=== PATIENT | female | born 1990 ===

== ENCOUNTER 2018-06-20 15:45 | Emergency (ER) | payer OTHER ==
[2018-06-20] MEDS ORDERED: Sodium Chloride 0.9% 1,000 ML IV ONE (16:01)
[2018-06-20 16:32] LABS: BASO % 0.2 % (0.0-2.0); EOS # 0.1 K/uL (0.0-0.7); EOS % 1.2 % (0.0-4.0); HEMOGLOBIN 11.1 g/dL (11.0-16.0); LYMPH # 2.5 K/uL (1.0-4.3); LYMPH % 34.4 % (20.0-40.0); MEAN CELL VOLUME 79.2 fL (81.0-99.0); MEAN CORPUSCULAR HEMOGLOBIN 25.2 pg (27.0-31.0); MEAN CORPUSCULAR HGB CONC 31.9 g/dL (33.0-37.0); MEAN PLATELET VOLUME 9.9 fL (7.2-11.7); MONO # 0.4 K/uL (0.0-0.8); MONO % 5.5 % (0.0-10.0); NEUT # 4.3 K/uL (1.8-7.0); NEUT % 58.7 % (50.0-75.0); NRBC % 0.1 % (0.0-2.0); RBC 4.4 Mil/uL (3.80-5.20); RED CELL DISTRIBUTION WIDTH 15.4 % (11.5-14.5); WHITE BLOOD COUNT 7.3 K/uL (4.8-10.8)
[2018-06-20 16:37] LABS: HCG,QUALITATIVE URINE POSITIVE (NEGATIVE)
[2018-06-20 16:45] LABS: BLOOD UREA NITROGEN 5 mg/dL (7-17); CALCIUM 9.4 mg/dl (8.6-10.4); GFR NON-AFRICAN AMERICAN > 60
[2018-06-20 16:49] LABS: SQUAMOUS EPITHIAL 7 /hpf (0-5); URINE BACTERIA RARE (<OCC); URINE BILIRUBIN NEGATIVE (NEGATIVE); URINE BLOOD 3+ (NEGATIVE); URINE CLARITY Clear (Clear); URINE COLOR Straw (YELLOW); URINE GLUCOSE (UA) NORMAL (Normal); URINE LEUKOCYTE ESTERASE NEG Leu/uL (Negative); URINE PROTEIN NEGATIVE (NEGATIVE); URINE UROBILINOGEN NORMAL mg/dL (0.2-1.0)
--- NOTE | 2018-06-20 18:33 | C.PDOC ---
Time Seen by Provider: 06/20/18 16:01 Chief Complaint (Nursing): Female Genitourinary Past Medical History Vital Signs: Last Vital Signs Temp 98.5 F 06/20/18 15:50 Pulse 76 06/20/18 15:50 Resp 18 06/20/18 15:50 BP 119/76 06/20/18 15:50 Pulse Ox 100 06/20/18 15:50 - Social History Hx Alcohol Use: No Hx Substance Use: No - Immunization History Hx Tetanus Toxoid Vaccination: No Hx Influenza Vaccination: No Hx Pneumococcal Vaccination: No ED Course And Treatment - Laboratory Results Result Diagrams: 06/20/18 16:29 06/20/18 16:29 O2 Sat by Pulse Oximetry: 100 Disposition - Disposition Disposition: HOME/ ROUTINE Disposition Time: 18:31 Condition: GOOD Additional Instructions: Follow up with your [facility] [employer] [employer] or in the Emergency Department in 2 days for repeat blood work. Return to Emergency right away if heavy bleeding or significant pelvic pain. Instructions: Bleeding With (DC) Forms: [facility] (Swedish), General Discharge Instructions, Work Excuse - POA Present On Arrival: None - Clinical Impression Clinical Impression: Bleeding in early
[2018-06-20 18:35] VITALS: BP 108/66; PULSE 84; RESP 16; TEMP 98.8
[2018-06-20 18:36] VITALS: O2SAT 100
--- NOTE | 2018-06-20 18:36 | C.PDOC ---
History Of Present Illness 28 y/o female, 5 weeks , presents to ED for evaluation after she noticed some blood in her underwear today. She also reports some blood in her urine. Notes she had abdominal cramping at that time but does not have any pain at this time. Pt was seen at the clinic earlier today for her first visit. Otherwise, denies dysuria, frequency, fever, chills, or back pain. Time Seen by Provider: 06/20/18 16:01 Chief Complaint (Nursing): Female Genitourinary History Per: Patient History/Exam Limitations: no limitations Onset/Duration Of Symptoms: Hrs Current Symptoms Are (Timing): Still Present Quality Of Discomfort: Cramping Associated Symptoms: Urinary Symptoms. denies: Fever, Chills, Nausea, Vomiting, Diarrhea Alleviating Factors: None Recent travel outside of the [place]: No Additional History Per: Patient Abnormal Vaginal Bleeding: No Past Medical History Reviewed: Historical Data, Nursing Documentation, Vital Signs Vital Signs: Last Vital Signs Temp 98.5 F 06/20/18 15:50 Pulse 76 06/20/18 15:50 Resp 18 06/20/18 15:50 BP 119/76 06/20/18 15:50 Pulse Ox 100 06/20/18 18:33 Family History: States: Unknown Family Hx - Social History Hx Alcohol Use: No Hx Substance Use: No - Immunization History Hx Tetanus Toxoid Vaccination: No Hx Influenza Vaccination: No Hx Pneumococcal Vaccination: No Review Of Systems Review Of Systems: ROS cannot be obtained secondary to pt's inabilty to answer questions. Constitutional: Negative for: Fever, Chills Gastrointestinal: Negative for: Nausea, Vomiting, Abdominal Pain, Diarrhea Genitourinary: Positive for: Hematuria. Negative for: Dysuria, Frequency, Vaginal Discharge, Pelvic Pain Musculoskeletal: Negative for: Back Pain Physical Exam - Physical Exam Appears: Non-toxic, No Acute Distress Skin: Normal Color, Warm, Dry Head: Atraumatic, Normacephalic Eye(s): bilateral: Normal Inspection Oral Mucosa: Moist Neck: Normal ROM, Supple Chest: Symmetrical Cardiovascular: Rhythm Regular, No Murmur Respiratory: Normal Breath Sounds, No Rales, No Rhonchi, No Wheezing Gastrointestinal/Abdominal: Soft, No Tenderness, No Guarding, No Rebound Back: No CVA Tenderness Extremity: Normal ROM Neurological/Psych: Oriented x3, Normal Speech ED Course And Treatment - Laboratory Results Result Diagrams: 06/20/18 16:29 06/20/18 16:29 O2 Sat by Pulse Oximetry: 100 (RA) Pulse Ox Interpretation: Normal Medical Decision Making Medical Decision Making: Plan: Blood work Urinalysis IV fluids Disposition - Disposition Disposition: HOME/ ROUTINE Disposition Time: 18:31 Condition: GOOD Additional Instructions: Follow up with your REPORTING SPECIALIST or in the Emergency Department in 2 days for repeat blood work. Return to Emergency right away if heavy bleeding or significant pelvic pain. Instructions: Bleeding With (DC) Forms: General Discharge Instructions, [facility] (Belarusian), Work Excuse - Clinical Impression Clinical Impression: Bleeding in early - Scribe Statement The provider has reviewed the documentation as recorded by the Scribe KP All medical record entries made by the Scribe were at my direction and personally dictated by me. I have reviewed the chart and agree that the record accurately reflects my personal performance of the history, physical exam, medical decision making, and the department course for this patient. I have also personally directed, reviewed, and agree with the discharge instructions and disposition.
== END 2018-06-20 18:50 | disposition home or self-care (01) ==
LOC: C.ER 15:45
DX: O20.9 Hemorrhage in early pregnancy, unspecified (principal); Z3A.01 Less than 8 weeks gestation of pregnancy
CPT/HCPCS: 80048; 81001; 84702; 84703; 85025; 86850; 86900; 96360; 99284; J7030

== ENCOUNTER 2018-06-23 15:59 | Emergency (ER) | payer OTHER ==
[2018-06-23 16:08] VITALS: BP 101/67; PULSE 102; RESP 18; TEMP 98; O2SAT 100
--- NOTE | 2018-06-23 17:10 | C.PDOC ---
History Of Present Illness 28 y/o female presents to the ED for repeat Beta-HCG. She was seen here on 06/20 for hematuria, had labs done, and beta-HCG was 2616 at that time. No ultrasound was done. Patient returns today for repeat testing. She denies having any abdominal pain. Patient admits to some vaginal spotting. Denies any fever, chills, dysuria, or vaginal discharge. Time Seen by Provider: 06/23/18 16:47 Chief Complaint (Nursing): Female Genitourinary History Per: Patient History/Exam Limitations: no limitations Onset/Duration Of Symptoms: Days Current Symptoms Are (Timing): Gone Past Medical History Reviewed: Historical Data, Nursing Documentation, Vital Signs Vital Signs: Last Vital Signs Temp 98 F 06/23/18 16:03 Pulse 102 H 06/23/18 16:03 Resp 18 06/23/18 16:03 BP 101/67 06/23/18 16:03 Pulse Ox 100 06/23/18 16:03 Other Surgeries: Cardiac surgery during infancy Family History: States: Unknown Family Hx - Social History Hx Tobacco Use: No Hx Alcohol Use: No Hx Substance Use: No - Immunization History Hx Tetanus Toxoid Vaccination: No Hx Influenza Vaccination: No Hx Pneumococcal Vaccination: No Review Of Systems Except As Marked, All Systems Reviewed And Found Negative. Constitutional: Negative for: Fever, Chills Gastrointestinal: Negative for: Nausea, Vomiting, Abdominal Pain Genitourinary: Positive for: Vaginal Bleeding (spotting). Negative for: Dysuria, Frequency, Vaginal Discharge Physical Exam - Physical Exam Appears: Non-toxic, No Acute Distress Skin: Normal Color, Warm, Dry Head: Atraumatic, Normacephalic Eye(s): bilateral: Normal Inspection Neck: Normal ROM Chest: Symmetrical Cardiovascular: Rhythm Regular Respiratory: Normal Breath Sounds, No Accessory Muscle Use, Other (speaking in complete sentences) Gastrointestinal/Abdominal: Soft, No Tenderness, No Distention, No Guarding, No Rebound Extremity: Normal ROM Neurological/Psych: Oriented x3, Normal Speech ED Course And Treatment O2 Sat by Pulse Oximetry: 100 (RA) Pulse Ox Interpretation: Normal Medical Decision Making Medical Decision Making: Plan: --Repeat beta HCG Repeat beta-HCG is 977 Labs consistent with miscarriage. Advised patient to follow up with her [facility] for further evaluation. Disposition Counseled Patient/Family Regarding: Studies Performed, Diagnosis - Disposition Disposition: HOME/ ROUTINE Disposition Time: 17:14 Condition: STABLE Additional Instructions: Follow up with your [facility] doctor this week. Return to the Emergency Department if you have significant pain or bleeding. Instructions: Miscarriage (DC) Forms: [facility] (Sri [place]ankan), General Discharge Instructions - POA Present On Arrival: None - Clinical Impression Clinical Impression: Miscarriage - Scribe Statement The provider has reviewed the documentation as recorded by the Carlosibfabian Jenkins Provider Attestation: All medical record entries made by the Jamarcus were at my direction and personally dictated by me. I have reviewed the chart and agree that the record accurately reflects my personal performance of the history, physical exam, medical decision making, and the department course for this patient. I have also personally directed, reviewed, and agree with the discharge instructions and di sposition.
== END 2018-06-23 17:23 | disposition home or self-care (01) ==
LOC: C.ER 15:59
DX: O03.9 Complete or unspecified spontaneous abortion without complication (principal)